=== PATIENT | male | born 1950 | race American Indian/Alaskan Native ===

== ENCOUNTER → 2019-12-29 | Day surgery (SDC) | payer OTHER ==
[~2019-12-29] MED LIST: Dextrose 5%-0.45% NaCl 1,000 ML IV SCH; Midazolam 1 MG/ML 2 ML SDV ONE; Sodium Chloride 0.9% 10 ML Syringe FLUSH PRN; fentaNYL 100 MCG/2 ML SDV ONE
== END ==
LOC: DL.ENDO 06:08
PROVIDERS: ATTEND Internal Medicine Gastroenterology
DX: Z53.8 Procedure and treatment not carried out for other reasons (principal)

== ENCOUNTER 2020-01-02 05:26 | Day surgery (SDC) | payer OTHER ==
[2020-01-02] MEDS ORDERED: Midazolam 1 MG/ML 2 ML SDV IV ONE ×3 (05:27→06:35)
[2020-01-02] MEDS ORDERED: fentaNYL 100 MCG/2 ML SDV IV ONE ×3 (05:27→06:34)
[2020-01-02] MEDS ORDERED: Dextrose 5%-0.45% NaCl 1,000 ML IV SCH (06:00)
[2020-01-02] MEDS ORDERED: Sodium Chloride 0.9% 10 ML Syringe FLUSH PRN (06:00)
[2020-01-02] MEDS ORDERED: Midazolam 1 MG/ML 2 ML SDV ONE (06:15)
[2020-01-02] MEDS ORDERED: fentaNYL 100 MCG/2 ML SDV ONE (06:15)
--- NOTE | 2020-01-02 07:17 | OR ---
DATE: 01/02/2020 PROCEDURE: Esophagogastroduodenoscopy and multiple pinch biopsies. INSTRUMENT USED: [id number]-HQ190 Olympus video panendoscope. PREMEDICATIONS: No oral or topical anesthesia used. Fentanyl 100 mcg intravenous, Versed 2 mg intravenous. The procedure was done under pulse oximetry, BP recording, and cardiac monitoring. INDICATION: The patient with longstanding heartburn, on PPI. Also has history of chronic hepatitis C. Esophagogastroduodenoscopy is performed for detection of any active erosive lesions, [place] esophagus and/or malignancy also under consideration, observation for any evidence of esophageal varices, H pylori status to be determined, endoscopic hemostasis therapy if needed. DESCRIPTION OF PROCEDURE: The scope was passed with ease. Adequate visualization of the esophagus was made from proximal to distal areas. No upper esophageal lesions identified. No distal esophageal stricture. No uphill or downhill esophageal varices. No Kinza-Carnes tear. No evidence of erosive esophagitis by Arcade criteria. No esophageal polyp or tumor mass identified. Z-line was seen at around 40 cm distal to the oral verge, configuration consistent with grade 1 by ZAP classification. No proximal gastric varices noted. Gastric fundus examination by retroflexion showed no polypoid lesions. No gastric ulcer, malignant mass, or vascular ectasia identified. Duodenal bulb showed no ulcer. Visualized second part of the duodenum is unremarkable. Multiple pinch biopsies were obtained from the gastric antrum and proximal body and sent for PyloriTek test for H pylori, and if negative in an hour, tissues to be sent for histopathology. No bleeding was noted from any of the visualized areas at the conclusion of examination. Photographs were taken of the duodenal bulb, gastric antrum, fundus, and distal esophagus. IMPRESSION: Normal study. The patient tolerated the procedure well. [facility] /[id number]
--- NOTE | 2020-01-02 07:50 | LETTER ---
01/02/2020 RE: BARON MAYNARD : 1950 Neto Mckeon MD [facility] [address] [place] [address] Mckeon: Mr. Baron Maynard had esophagogastroduodenoscopy done this morning and he tolerated the procedure well. I herewith send a copy of the endoscopy note and photographs for your review. Thank you. Sincerely, [facility] /[id number]
== END 2020-01-02 09:00 | disposition home or self-care (01) ==
LOC: DL.ENDO 05:26
PROVIDERS: ATTEND Internal Medicine Gastroenterology
DX: R12 Heartburn (principal); B18.2 Chronic viral hepatitis C; F17.210 Nicotine dependence, cigarettes, uncomplicated; F12.10 Cannabis abuse, uncomplicated; Z79.82 Long term (current) use of aspirin; Z87.19 Personal history of other diseases of the digestive system
CPT/HCPCS: 43239; 87077; J2250; J3010; J7042

== ENCOUNTER 2020-01-03 05:31 | Day surgery (SDC) | payer OTHER ==
[2020-01-03] MEDS ORDERED: Midazolam 1 MG/ML 2 ML SDV IV ONE ×5 (05:32→06:32)
[2020-01-03] MEDS ORDERED: fentaNYL 100 MCG/2 ML SDV IV ONE ×3 (05:32→06:25)
[2020-01-03] MEDS ORDERED: Dextrose 5%-0.45% NaCl 1,000 ML IV SCH (05:55)
[2020-01-03] MEDS ORDERED: Midazolam 1 MG/ML 2 ML SDV ONE (06:14)
[2020-01-03] MEDS ORDERED: fentaNYL 100 MCG/2 ML SDV ONE (06:15)
--- NOTE | 2020-01-03 07:56 | OR ---
DATE: 01/03/2020 PROCEDURES: Total colonoscopy and multiple cold snare polypectomies. INSTRUMENT USED: [id number]-AP608D Olympus video colonoscope. PREMEDICATIONS: Fentanyl 100 mcg intravenous, Versed 3 mg intravenous. Nasal O2 cannula. The procedure was done under pulse oximetry, BP recording, and nurse monitoring. INDICATION: Screening colonoscopic examination is done for detection of any polypoid lesions and removal, endoscopic hemostasis therapy if needed. DESCRIPTION OF PROCEDURE: Initial rectal exam was unremarkable. Rigid anoscopy showed small internal hemorrhoids without bleeding from them. The colonoscope was passed with ease. Scattered diverticula were noted. There was moderate amount of stool liquid and semi-liquid material that had to be aspirated. The scope was passed with ease up to the ileocecal area. Photographs were taken of the cecum showing 5 mm sized polyp. Photographs were taken, cold snare polypectomy was done, the tissue was retrieved and sent for histopathology. In the proximal transverse colon, 5 mm sized benign-appearing polyp was noted, photograph was taken, cold snare polypectomy was done, the tissue was retrieved and sent for histopathology. No bleeding was noted from any of the visualized areas at the commencement of the examination. The bowel preparation was scale 2 in all the regions, total score 6. No stricture. No vascular ectasia. No large isolated ulcerations seen. No evidence of diffuse inflammatory bowel disease in the form of friability, contact bleeding, or ulcerations. Probing the proximal sides of folds and flexures using adequate distention and clearing up the stool material, withdrawal of the scope was made, cecum to rectum time over 6 minutes. No bleeding was noted from any of the visualized areas at the completion of examination. IMPRESSION: 1. Internal hemorrhoids. 2. Diverticulosis. 3. Colonic polyps. The patient tolerated the procedure well. [facility] /[id number]
--- NOTE | 2020-01-03 08:50 | LETTER ---
01/03/2020 Neto Mckeon MD [facility] [address] [place] [address] RE: DANIELLETANJA CONTIMACK Gupta : [address] Mckeon: Mr. Baron Maynard had colonoscopic examination done this morning and he tolerated the procedure well. I herewith send a copy of the endoscopy note and photographs for your review. Thank you. Sincerely, [facility] /[id number]
== END 2020-01-03 09:00 | disposition home or self-care (01) ==
LOC: DL.ENDO 05:31
PROVIDERS: ATTEND Internal Medicine Gastroenterology
DX: Z12.11 Encounter for screening for malignant neoplasm of colon (principal); D12.0 Benign neoplasm of cecum; K64.8 Other hemorrhoids; K57.30 Diverticulosis of large intestine without perforation or abscess without bleeding; F17.210 Nicotine dependence, cigarettes, uncomplicated; F12.90 Cannabis use, unspecified, uncomplicated; Z86.19 Personal history of other infectious and parasitic diseases; Z87.19 Personal history of other diseases of the digestive system; Z79.82 Long term (current) use of aspirin
CPT/HCPCS: 45385; J2250; J3010; J7042

== ENCOUNTER 2024-03-17 08:10 | Emergency (ER) | payer OTHER ==
[2024-03-17] MEDS ORDERED: Naloxone 2 MG/2 ML Syringe IVPUSH PRN (08:35)
[2024-03-17 08:49] LABS: BASOPHILS PERCENT AUTO 0.3 % (0.0-1.0); EOSINOPHILS PERCENT AUTO 2.8 % (1.0-3.0); HEMATOCRIT 50.8 % (40.0-54.0); HEMOGLOBIN 17.3 g/dL (14.0-18.0); LYMPHOCYTES PERCENT AUTO 23.2 % (20.5-50.1); MEAN CORPUSCULAR HEMOGLOBIN 30.7 pg (27.0-34.0); MEAN CORPUSCULAR HGB CONC 34.1 g/dL (33.0-35.0); MEAN CORPUSCULAR VOLUME 90.2 fL (80-100); NEUTROPHILS PERCENT AUTO 67.7 % (42.2-75.2); PLATELET COUNT,PLT 248 10^3/uL (150-450); RED BLOOD CELL COUNT 5.63 10^6/uL (4.6-6.2); WHITE BLOOD CELL COUNT,WBC 11.4 10^3/uL (5.0-10.0)
[2024-03-17] MEDS: fentaNYL 100 MCG/2 ML SDV IVPUSH ONE ×2 (08:52→09:31)
[2024-03-17 08:57] LABS: APPEARANCE,URINE CLEAR (CLEAR); BILIRUBIN,URINE NEGATIVE (NEGATIVE); COLOR,URINE DARK YELLOW (YELLOW); GLUCOSE,URINE NEGATIVE (NEGATIVE); KETONES,URINE NEGATIVE (NEGATIVE); LEUKOCYTE ESTERASE,URINE NEGATIVE (NEGATIVE); NITRITE,URINE NEGATIVE (NEGATIVE); OCCULT BLOOD,URINE TRACE-INTACT (NEGATIVE); PROTEIN,URINE 30 (NEGATIVE); UROBILINOGEN,URINE 0.2 mg/dL (0.2-1.0)
[2024-03-17 09:09] LABS: INR 1.1 (0.9-1.2)
[2024-03-17 09:14] LABS: BACTERIA,URINE RARE /HPF (0-FEW/HPF); EPITHELIAL CELLS,URINE RARE /HPF (NOT SEEN); MUCUS,URINE MANY /LPF (NOT SEEN); WBC,URINE 0-5 /HPF (0-5/HPF)
[2024-03-17 09:15] LABS: HYALINE CASTS,URINE FEW
[2024-03-17] MEDS: Iopamidol 755 Mg/ML 100 ML Bottle IVPUSH ONE ×2 (09:17→10:28)
[2024-03-17 09:37] LABS: ALANINE AMINOTRANSFERASE,ALT 32 U/L (16-63); ALBUMIN 4.1 g/dL (3.4-5.0); ALKALINE PHOSPHATASE 93 U/L (46-116); ANION GAP 16.4 mEq/L (7-13); ASPARTATE AMNIOTRANSFERASE,AST 25 U/L (15-37); BILIRUBIN TOTAL 0.5 mg/dL (0.2-1.0); BLOOD UREA NITROGEN,BUN 13 mg/dL (7-18); BUN/CREATININE RATIO 16.2 (No establ ref range); CALCIUM 9.1 mg/dL (8.5-10.1); CARBON DIOXIDE,CO2 25 mmol/L (21-32); CHLORIDE,CL 102 mmol/L (98-107); EST CRCL DRUG DOSING (CG) 78.03 mL/min; GLUCOSE RANDOM 190 mg/dL (70-99); LIPASE 27 U/L (16-77); POTASSIUM,K 3.4 mmol/L (3.5-5.1); PROTEIN TOTAL,TP 8.1 g/dL (6.4-8.2); SODIUM,NA 140 mmol/L (136-145)
[2024-03-17 09:43] LABS: C-REACTIVE PROTEIN < 0.50 ng/dL (<=0.50); ESTIMATED GFR 94 mL/min (>=60)
[2024-03-17] MEDS: HYDROmorphone 1 MG/ML Syringe IVPUSH ONE (10:41)
[2024-03-17] MEDS ORDERED: niCARdipine/Normal Saline 20 MG in Premix Bag 1 BAG IV SCH (11:15)
[2024-03-17] MEDS ORDERED: Esmolol 100 MG/10 ML SDV ONE (11:29)
[2024-03-17] MEDS: ESMOLOL IV SCH (11:33)
[2024-03-17] MEDS: Esmolol 100 MG/10 ML SDV IV ONE (11:33)
[2024-03-17] MEDS: SODIUM CHLORIDE 0.9% IV SCH (11:33)
[2024-03-17] MEDS: Labetalol 20 MG/4 ML Syringe IVPUSH ONE (11:46)
== END 2024-03-17 12:07 ==
LOC: DL.ED 08:10
DX: I71.03 Dissection of thoracoabdominal aorta (principal); K21.9 Gastro-esophageal reflux disease without esophagitis; F17.210 Nicotine dependence, cigarettes, uncomplicated; Z79.899 Other long term (current) drug therapy; Z79.82 Long term (current) use of aspirin
CPT/HCPCS: 36415; 71275; 74174; 80053; 81001; 83690; 84484; 85025; 85610; 86140; 93005; 96365; 96375; 96376; 99285; J1171; J1920; J3010; J3490; J7040; Q9967